=== PATIENT | male | born 1995 | race Caucasian/White ===

== ENCOUNTER 2020-10-08 22:12 | Emergency (ER) | payer BC, OTHER ==
[~2020-10-08 22:12] MED LIST: LODINE CAP 300300 MG PO
[2020-10-09] MEDS ORDERED: BACTROBAN OINT22 GM EXT (02:03)
[2020-10-09] MEDS ORDERED: IBUPROFEN600 MG PO (02:03)
== END 2020-10-09 02:09 | disposition home or self-care (01) ==
LOC: ER1 22:12
DX: M79.675 Pain in left toe(s) (principal)
CPT/HCPCS: 73630; 99283